=== PATIENT | female | born 1955 | race Caucasian/White ===

== ENCOUNTER 2017-05-12 13:57 | Emergency (ER) | payer BC ==
[~2017-05-12] VITALS: Ht 165.1 cm; Wt 87.5 kg
[2017-05-12 15:08] LABS: HEMATOCRIT 41.5 % (36.0-46.0); MCH 26.3 PG (29.0-34.0); MEAN PLAT.VOLUME 10.1 uM^3 (9.5-12.4); PLATELET COUNT 218 K/uL (156-360); RBC DIS.WIDTH-CV 13.5 % (11.8-14.6); RED BLOOD COUNT 5.06 M/uL (3.80-5.20); WHITE BLOOD COUNT 5.8 K/uL (4.1-10.2)
[2017-05-12 15:20] LABS: CHLORIDE 103 mEq/L (99-109); POTASSIUM 4.6 mEq/L (3.7-5.4); SODIUM 139 mEq/L (136-147)
[2017-05-12 15:23] LABS: GLUCOSE 195 mg/dL (70-99)
[2017-05-12 15:24] LABS: ANION GAP 13 MEQ/L (2-14)
[2017-05-12 15:24] LABS: ADD MIUA? NO; BILIRUBIN NEGATIVE; BLOOD NEGATIVE; COLOR STRAW ((YELLOW)); GLUCOSE (STRIP) NEGATIVE; KETONES NEGATIVE; LEUKOCYTES NEGATIVE; NITRITE NEGATIVE; PROTEIN (STRIP) NEGATIVE; SPECIFIC GRAVITY 1.005 (1.000-1.030); UROBILINOGEN 0.2 MG/DL (0.2-1.0)
[2017-05-12 15:25] LABS: TOTAL BILIRUBIN 0.3 mg/dL (0.0-1.0)
[2017-05-12 15:26] LABS: ALKALINE PHOSPHATASE 93 IU/L (3-129); GFR ESTIMATE (CALCULATED) > 59 mL/min/
[2017-05-12 15:27] LABS: UREA NITROGEN (BUN) 14 mg/dL (9-23)
[2017-05-12 15:30] LABS: LIPASE 135 U/L (1.0-51.0)
[2017-05-12 16:13] LABS: TROP-I INTERPRETATION NEGATIVE; TROPONIN-I < 0.01 ng/mL (0.0-0.30)
[2017-05-12] MEDS ORDERED: PERCOCET 5/31 TABLET PO (18:27)
[2017-05-12] MEDS ORDERED: ZOFRAN ODT4 MG PO (18:27)
[2017-05-12 18:46] VITALS: BP 145/95
== END 2017-05-12 18:49 | disposition home or self-care (01) ==
LOC: EME 13:57
PROVIDERS: Nurse Practitioner Family
DX: K85.90 Acute pancreatitis without necrosis or infection, unspecified (principal); N28.1 Cyst of kidney, acquired; K76.0 Fatty (change of) liver, not elsewhere classified; K21.9 Gastro-esophageal reflux disease without esophagitis; Z87.442 Personal history of urinary calculi; Z88.2 Allergy status to sulfonamides
CPT/HCPCS: 71020; 74177; 80053; 81003; 83690; 84484; 85027; 99281; 99284; J1885; J2405; J7030

== ENCOUNTER 2017-05-13 01:27 | Emergency (ER) | payer BC ==
[~2017-05-13] VITALS: Ht 165.1 cm; Wt 87.9 kg
[~2017-05-13 01:27] MED LIST: PERCOCET 5/31 TABLET PO; ZOFRAN ODT4 MG PO
[2017-05-13 03:24] VITALS: BP 142/90
== END 2017-05-13 03:41 | disposition home or self-care (01) ==
LOC: EME 01:27
DX: K85.90 Acute pancreatitis without necrosis or infection, unspecified (principal)
CPT/HCPCS: 93005; 99281; 99284; J2270

== ENCOUNTER → 2017-06-13 | Outpatient (CLI) | payer BC | END | disposition home or self-care (01) | LOC: NUC 07:27 | DX: R10.11 Right upper quadrant pain (principal); M54.9 Dorsalgia, unspecified; K21.9 Gastro-esophageal reflux disease without esophagitis; K76.0 Fatty (change of) liver, not elsewhere classified | CPT/HCPCS: 78227; A9510; J2805 ==